=== PATIENT | male | born 1935 | race Caucasian/White ===

== ENCOUNTER 2022-12-14 22:53 | Observation (INO) ==
[2022-12-14] MEDS ORDERED: KETOROLAC TROMETHAMINE 15 MG/ML VIAL IV ONE (23:20)
--- NOTE | 2022-12-14 23:23 | Emergency Department Note ---
History of Present Illness General Chief complaint: Flank Pain Stated complaint: VOMITTING,BACK PAIN, R FLANK PAIN,DIZZY Time Seen by Provider: 12/14/22 23:00 History of Present Illness Maximum Pain Intensity: 5 87-year-old male presents emergency department 2-hour history of right flank pain that started suddenly with associated vomiting. Patient's had a prior history of kidney stones. Patient denies any fever states the pain was moderate is now there were no other mitigating or alleviating factors. Patient denies hematuria patient denies recent trauma. Patient denies specific abdominal pain Home Medications Medication Instructions Recorded Confirmed Type amlodipine 5 mg tablet 5 mg PO DAILY 02/18/19 12/14/22 History hydralazine 50 mg tablet 50 mg PO BID 02/18/19 12/14/22 History isosorbide mononitrate 60 mg 60 mg PO DAILY 02/18/19 12/14/22 History tablet,extended release 24 hr metformin 500 mg tablet,extended 500 mg PO BID 02/18/19 12/14/22 History release 24 hr metoprolol succinate 25 mg 12.5 mg PO HS 02/18/19 12/14/22 History tablet,extended release 24 hr multivitamin 1 tab PO DAILY 02/18/19 12/14/22 History simvastatin 20 mg tablet 20 mg PO HS 02/18/19 12/14/22 History aspirin 81 mg tablet,delayed 81 mg PO DAILY 12/14/22 12/14/22 History release coQ10 (ubiquinol) 200 mg capsule 200 mg PO DAILY 12/14/22 12/14/22 History omeprazole 20 mg capsule,delayed 20 mg PO DAILY 12/14/22 12/14/22 History release vit C 250 mg-vit E 90 mg-zinc 40 1 tab PO BID 12/14/22 12/14/22 History mg-copper 1 [id number] capsule (PreserVision AREDS-2) Allergies Allergy/AdvReac Type Severity Reaction Status Date / Time losartan Allergy Severe ANGIOEDEMA Verified 12/14/22 23:52 peanut Allergy Severe THROAT Verified 12/14/22 23:52 SWELLED--ATE A LARGE AMT Penicillins Allergy Intermediate Hives Verified 12/14/22 23:52 Past Med/Surg History Surgical History S/P triple vessel bypass Family History Other Family history non-contributory Social History Smoking Status: Never smoker Preferred Language: Portuguese Feels Safe at Home: Yes Immunizations: Past medical history is reviewed see the chart for further patient had a prior history of kidney stones and is a diabetic Review of Systems A total of 10 systems reviewed and were otherwise negative Musculoskeletal: + back pain Physical Exam Vital Signs Vital Signs - 24 hr 12/14/22 22:56 12/14/22 23:33 12/14/22 23:35 Temperature 36.7 C Temperature Source Temporal Artery Scan Pulse Rate 69 71 Pulse Rate [Apical] 72 Pulse Rate from SpO2 Sensor 68 Respiratory Rate 18 18 16 Respiratory Effort / Characteristics Non-Labored Respiratory Depth Normal Blood Pressure 180/76 H Blood Pressure [Left Arm] 172/69 H Blood Pressure Mean 110 Blood Pressure Mean [Left Arm] 103 Pulse Oximetry 95 95 97 Oxygen Delivery Method Room Air Room Air Sepsis Recent Fever Within 48 Hours No Sepsis New/Unexplained Change in Mental Status No Sepsis Action Taken by Nursing No Action Required 12/15/22 00:00 12/15/22 00:30 12/15/22 01:00 Temperature Temperature Source Pulse Rate 71 81 67 Pulse Rate [Apical] Pulse Rate from SpO2 Sensor Respiratory Rate 18 21 20 Respiratory Effort / Characteristics Respiratory Depth Blood Pressure Blood Pressure [Left Arm] Blood Pressure Mean Blood Pressure Mean [Left Arm] Pulse Oximetry Oxygen Delivery Method Sepsis Recent Fever Within 48 Hours Sepsis New/Unexplained Change in Mental Status Sepsis Action Taken by Nursing 12/15/22 01:30 Temperature Temperature Source Pulse Rate 69 Pulse Rate [Apical] Pulse Rate from SpO2 Sensor Respiratory Rate 18 Respiratory Effort / Characteristics Respiratory Depth Blood Pressure Blood Pressure [Left Arm] Blood Pressure Mean Blood Pressure Mean [Left Arm] Pulse Oximetry Oxygen Delivery Method Sepsis Recent Fever Within 48 Hours Sepsis New/Unexplained Change in Mental Status Sepsis Action Taken by Nursing GENERAL: Patient is awake alert in no acute distress patient is resting comfortably and showing no signs of anxiety EYES: The conjunctivae are clear. The pupils are round and reactive. EARS, NOSE, MOUTH AND THROAT: The nose is without any evidence of any deformity. Mucous membranes are moist. Tongue is midline. NECK: The neck is nontender and supple. RESPIRATORY: Normal respiratory effort is noted there is no evidence of wheezing rhonchi or rales CARDIOVASCULAR: Regular rate and rhythm noted there no murmurs rubs or gallops normal S1 normal S2. GASTROINTESTINAL: The abdomen is soft. Abdomen is nontender. PELVIS: The Pelvis is stable. No tenderness to palpation is noted. BACK: No midline tenderness or or step-off noted range of motion in flexion extension as well as rotation no signs of muscle spasm noted; right flank there is no costovertebral angle tenderness present MUSCULOSKELETAL/EXTREMITIES: There is no evidence of gross deformity full range of motion is noted in the hips and shoulders. SKIN: There is no obvious evidence of any rash. There are no petechiae, pallor or cyanosis noted. NEUROLOGIC: Patient is awake alert and oriented x3 strength is symmetric Psych normal affect Course Reevaluation(s) Reevaluation #1: On repeat examination the patient feels improved. Patient was started on Toradol and Zofran and Rocephin. The case was discussed with the patient and patient's family at bedside. Concern is for an infected kidney stone. Case was also discussed with the [facility]ist Time: :05 Consultations Consultation #1: Spoke with [facility] for admission for infected kidney stone Time: 01:05 Administered Medications Discontinued Medications Ketorolac Tromethamine (Ketorolac Tromethamine 15 Mg/Ml Vial) 10 mg IV NOW ONE Stop: 12/14/22 23:21 Last Admin: 12/14/22 23:40 Dose: 10 mg Documented By: BERNARD Ondansetron HCl (Ondansetron Inj 2 Mg/Ml 2 Ml Vial) 4 mg IV NOW STA Stop: 12/14/22 23:33 Last Admin: 12/14/22 23:41 Dose: 4 mg Documented By: BERNARD Tamsulosin HCl (Tamsulosin Hcl 0.4 Mg Cap) 0.4 mg PO NOW ONE Stop: 12/15/22 01:09 Last Admin: 12/15/22 01:28 Dose: 0.4 mg Documented By: BERNARD Medical Decision Making Medical Records Attestation: I reviewed the patient's medical records. Home Medications Current Medication List: was personally reviewed by me Laboratory Data Attestation: I reviewed the patient's lab results. 12/14/22 23:10 12/14/22 23:10 Lab Results 12/14/22 12/14/2212/14/23 Range/Units 23:10 23:10 23:10 WBC 10.72 (4.8-10.8) K/ul RBC 5.05 (4.70-6.10) M/uL Hgb 16.1 (14.0-18.0) g/dl Hct 46.3 (42.0-52.0) % MCV 91.7 (80.0-100.0) fL MCH 31.9 (25.0-34.0) pg MCHC 34.8 (32.0-36.0) g/dL RDW Std Deviation 43.5 (36.4-46.3) fL RDW Coeff of [place] 13.0 (11.5-14.5) % Plt Count 220 (130-400) K/uL MPV 9.8 (9.4-12.4) fL Immature Gran % (Auto) 0.4 % Neut % (Auto) 80.4 % Lymph % (Auto) 13.9 % [place] % (Auto) 4.6 % Eos % (Auto) 0.4 % Baso % (Auto) 0.3 % Neut # (Auto) 8.63 H (1.40-6.50) K/uL Lymph # (Auto) 1.49 (1.2-3.4) K/uL [place] # (Auto) 0.49 (0.11-0.59) K/uL Eos # (Auto) 0.04 (0-0.50) K/uL Baso # (Auto) 0.03 (0-0.2) K/uL Immature Gran # (Auto) 0.04 (0.01-0.20) K/uL PT 10.6 (9.0-12.0) Seconds INR 1.0 (0.9-1.1) Sodium 140 (136-145) mmol/L Potassium 3.9 (3.5-5.1) mmol/L Chloride 105 (98-107) mmol/L Carbon Dioxide 24 (21-32) mmol/L Anion Gap 11 (3-11) BUN 23 (6-23) mg/dl Creatinine 1.21 (0.6-1.4) mg/dl Est Cr Clr Drug Dosing Not Reportable Est GFR ( Amer) 61.1 ml/min Est GFR (Non-Af Amer) 52.8 ml/min BUN/Creatinine Ratio 19.0 (10-20) Glucose 162 H (70-99(Fasting)) mg/dl Calcium 9.1 (8.5-10.1) mg/dl Total Bilirubin 0.9 (0.2-1.0) mg/dl AST 24 (13-39) U/L ALT 21 (7-52) U/L Alkaline Phosphatase 89 (34-104) U/L Troponin I High Sens 8.5 (0-20) pg/ml Total Protein 7.6 (6.0-8.3) gm/dl Albumin 4.5 (3.4-5.0) gm/dl Globulin 3.1 (2.5-4.0) gm/dl Albumin/Globulin Ratio 1.5 (0.9-2) Lipase 28 (11-82) U/L Urine Color Urine Appearance (Clear) Urine pH (4.5-7.5) Ur Specific [place] (1.000-1.030) Urine Protein (Negative) Urine Glucose (UA) (Negative) Urine Ketones (Negative) Urine Blood (Negative) Urine Nitrite (Negative) Urine Bilirubin (Negative) Urine Urobilinogen (Negative) Ur Leukocyte Esterase (Negative) Urine WBC (Auto) (0-5) /hpf Urine RBC (Auto) (0-4) /hpf U Hyaline Cast (Auto) (0-5) /lpf U Epithel Cells (Auto) (0-5) /lpf Urine Bacteria (Auto) (Negative) SARS-CoV-2, RNA, NAAT (NEGATIVE) 12/14/22 12/14/22 Range/Units 23:30 23:59 WBC (4.8-10.8) K/ul RBC (4.70-6.10) M/uL Hgb (14.0-18.0) g/dl Hct (42.0-52.0) % MCV (80.0-100.0) fL MCH (25.0-34.0) pg MCHC (32.0-36.0) g/dL RDW Std Deviation (36.4-46.3) fL RDW Coeff of [place] (11.5-14.5) % Plt Count (130-400) K/uL MPV (9.4-12.4) fL Immature Gran % (Auto) % Neut % (Auto) % Lymph % (Auto) % [place] % (Auto) % Eos % (Auto) % Baso % (Auto) % Neut # (Auto) (1.40-6.50) K/uL Lymph # (Auto) (1.2-3.4) K/uL [place] # (Auto) (0.11-0.59) K/uL Eos # (Auto) (0-0.50) K/uL Baso # (Auto) (0-0.2) K/uL Immature Gran # (Auto) (0.01-0.20) K/uL PT (9.0-12.0) Seconds INR (0.9-1.1) Sodium (136-145) mmol/L Potassium (3.5-5.1) mmol/L Chloride (98-107) mmol/L Carbon Dioxide (21-32) mmol/L Anion Gap (3-11) BUN (6-23) mg/dl Creatinine (0.6-1.4) mg/dl Est Cr Clr Drug Dosing Est GFR ( Amer) ml/min Est GFR (Non-Af Amer) ml/min BUN/Creatinine Ratio (10-20) Glucose (70-99(Fasting)) mg/dl Calcium (8.5-10.1) mg/dl Total Bilirubin (0.2-1.0) mg/dl AST (13-39) U/L ALT (7-52) U/L Alkaline Phosphatase (34-104) U/L Troponin I High Sens (0-20) pg/ml Total Protein (6.0-8.3) gm/dl Albumin (3.4-5.0) gm/dl Globulin (2.5-4.0) gm/dl Albumin/Globulin Ratio (0.9-2) Lipase (11-82) U/L Urine Color Yellow Urine Appearance Clear (Clear) Urine pH 6.5 (4.5-7.5) Ur Specific [place] 1.016 (1.000-1.030) Urine Protein 1+ H (Negative) Urine Glucose (UA) Negative (Negative) Urine Ketones 1+ H (Negative) Urine Blood 1+ H (Negative) Urine Nitrite Negative (Negative) Urine Bilirubin Negative (Negative) Urine Urobilinogen Negative (Negative) Ur Leukocyte Esterase Trace H (Negative) Urine WBC (Auto) 5-10 H (0-5) /hpf Urine RBC (Auto) 10-30 H (0-4) /hpf U Hyaline Cast (Auto) 0 (0-5) /lpf U Epithel Cells (Auto) 5-10 H (0-5) /lpf Urine Bacteria (Auto) Negative (Negative) SARS-CoV-2, RNA, NAAT NEGATIVE (NEGATIVE) Imaging Data Attestation: I personally reviewed and interpreted this imaging study as follows: My Impression: CT reviewed by me and appreciated stat rad read Radiologist's Impression: History: PAIN AT RIGHT FLANK, HX OF KIDNEY STONES Slices: [phone] Priors: Tech: Srinivas Hays @ [phone] Exams: CT ABDOMEN & PELVIS Without Contrast Contrast: Accession Numbers: [id number] Referring Physician: REFERRED SELF Preliminary Findings Only See Final Report For Complete Findings CT ABDOMEN & PELVIS Without Contrast: 0.3 cm right distal ureteral calculus just proximal to the ureterovesical junction causing moderate hydronephrosis and hydroureter with surrounding inflammation. 4 cm infrarenal abdominal aortic aneurysm without evidence of rupture. Previously measured 3.2 cm on study of 05/07/2012. Radiologist: Ted Chahal M.D. ECG Data Attestation: I personally reviewed and interpreted this ECG as follows: Additional Comments: EKG interpreted by me normal sinus rhythm rate of 63 first-degree AV block right bundle branch block no obvious ST segment elevation or depression MDM Narrative Medical decision making differential diagnosis includes ureterolithiasis, pyelonephritis, urinary tract infection, bowel obstruction, musculoskeletal back pain Plan is to check labs, urinalysis, CT abdomen pelvis External medical records were reviewed by me Nursing notes were reviewed by me and appreciated Independent history provided to me by the patient's at bedside Impression & Plan Ureterolithiasis, Acute UTI (urinary tract infection) Discharge Plan Visit Data Chief Complaint: Flank Pain Stated Complaint: VOMITTING,BACK PAIN, R FLANK PAIN,DIZZY ED Provider: Omar Carney Discharge Problem: Ureterolithiasis, Acute UTI (urinary tract infection) Patient Disposition: Admitted As Inpatient Forms Stand Alone Forms: My [facility] Prescriptions Prescriptions: No Action multivitamin Tablet 1 tab PO DAILY amlodipine 5 mg tablet 5 mg PO DAILY isosorbide mononitrate 60 mg tablet extended release 24 hr 60 mg PO DAILY simvastatin 20 mg tablet 20 mg PO HS hydralazine 50 mg tablet 50 mg PO BID metoprolol succinate 25 mg tablet extended release 24 hr 12.5 mg PO HS metformin 500 mg tablet extended release 24 hr 500 mg PO BID aspirin 81 mg Tablet,Delayed Release (Dr/Ec) 81 mg PO DAILY omeprazole 20 mg Capsule,Delayed Release(Dr/Ec) 20 mg PO DAILY coQ10 (ubiquinol) 200 mg Capsule 200 mg PO DAILY PreserVision AREDS-2 250-90-40-1 mg Capsule 1 tab PO BID Referrals Referrals: PCP,NO [Physician] -
[2022-12-14 23:32] LABS: Basophils # (auto) 0.03 K/uL (0-0.2); Basophils % (auto) 0.3 %; Eosinophils # (auto) 0.04 K/uL (0-0.50); Eosinophils % (auto) 0.4 %; Hematocrit (blood only) 46.3 % (42.0-52.0); Hemoglobin 16.1 g/dl (14.0-18.0); Immature Granulocytes # (auto) 0.04 K/uL (0.01-0.20); Immature Granulocytes % (auto) 0.4 %; Lymphocytes # (auto) 1.49 K/uL (1.2-3.4); Lymphocytes % (auto) 13.9 %; Mean Corpuscular Hemoglobin 31.9 pg (25.0-34.0); Mean Corpuscular Hgb Conc 34.8 g/dL (32.0-36.0); Mean Corpuscular Volume 91.7 fL (80.0-100.0); Mean Platelet Volume 9.8 fL (9.4-12.4); Monocytes # (auto) 0.49 K/uL (0.11-0.59); Monocytes % (auto) 4.6 %; Neutrophils # (auto) 8.63 K/uL (1.40-6.50); Neutrophils % (auto) 80.4 %; Platelet Count 220 K/uL (130-400); RDW Standard Deviation 43.5 fL (36.4-46.3); Red Blood Count 5.05 M/uL (4.70-6.10); White Blood Count 10.72 K/ul (4.8-10.8)
[2022-12-14] MEDS ORDERED: ONDANSETRON INJ 2 MG/ML 2 ML VIAL IV STA (23:32)
[2022-12-14 23:53] LABS: Alanine Aminotransferase 21 U/L (7-52); Albumin Globulin Ratio 1.5 (0.9-2); Albumin Level 4.5 gm/dl (3.4-5.0); Alkaline Phosphatase 89 U/L (34-104); Anion Gap 11 (3-11); Aspartate Aminotransferase 24 U/L (13-39); Bilirubin,Total 0.9 mg/dl (0.2-1.0); Blood Urea Nitrogen 23 mg/dl (6-23); Calcium 9.1 mg/dl (8.5-10.1); Carbon Dioxide 24 mmol/L (21-32); Chloride 105 mmol/L (98-107); Est GFR (African American) 61.1 ml/min; Est GFR (Non-African American) 52.8 ml/min; Globulin 3.1 gm/dl (2.5-4.0); Glucose 162 mg/dl (70-99(Fasting)); Lipase 28 U/L (11-82); Potassium 3.9 mmol/L (3.5-5.1); Sodium 140 mmol/L (136-145); Total Protein 7.6 gm/dl (6.0-8.3)
[2022-12-14 23:59] LABS: Troponin I High Sensitivity 8.5 pg/ml (0-20)
[2022-12-15] LABS: Appearance Urine Clear (Clear); Bacteria Urine Automated Negative (Negative); Bilirubin Urine Negative (Negative); Blood Urine 1+ (Negative); Cast Urine Automated 0 /lpf (0-5); Color Urine Yellow; Glucose Urine UA Negative (Negative); Ketones Urine 1+ (Negative); Leukocyte Esterase Urine Trace (Negative); Nitrite Urine Negative (Negative); Protein Urine 1+ (Negative); Specific Gravity Urine 1.016 (1.000-1.030); Urobilinogen Urine Negative (Negative); pH Urine 6.5 (4.5-7.5)
[2022-12-15 00:02] LABS: Prothrombin Time 10.6 Seconds (9.0-12.0)
[2022-12-15] MEDS ORDERED: cefTRIAXone SODIUM 2,000 MG/70 ML BAG IV STA (00:54)
[2022-12-15] MEDS ORDERED: amLODIPine BESYLATE 5 MG TAB PO ONE (01:05)
[2022-12-15] MEDS ORDERED: LACTATED RINGER'S 1,000 ML IV ONE (01:06)
[2022-12-15] MEDS ORDERED: TAMSULOSIN HCL 0.4 MG CAP PO ONE (01:08)
--- NOTE | 2022-12-15 01:08 | History & Physical Report ---
Date of Service December 15, 2022 Assessment & Plan (1) Obstructive uropathy: Plan: Secondary to recurrent urolithiasis No sepsis for now Hypertensive urgency secondary to above BP improved after amlodipine administration at the ER hx CAD status post CABG, clinically well as per outpatient [facility] visit June 2022 AAA, stable measurement at 4 cm, patient follows with [facility] vascular surgery hyperlipidemia, on statin Rx DM2 on oral medications, well-controlled as of recent hemoglobin A1c of 6.3 last September 2022 pulmonary nodule, patient refused additional work-up a few years back after negative bronchoscopic biopsies F IVF, analgesia Flomax trial Strain urine Urology consult Re: Obstructive uropathy N.p.o. until patient seen by urology in anticipation of procedural intervention Basal bolus insulin adjusted for n.p.o. status, ISS BG goal 1 10-1 40 DVT prophylaxis per Lovenox subcu Full code Patient requesting updates from providers. Ms. Therese Orellana, contact #[phone]. Text document was generated using [employer] voice recognition software. It may contain grammatical or spelling errors. Kindly contact undersigned for clarification of any documentation item in question. History of Present Illness Chief Complaint: Right flank pain Primary Care Provider: Laron Bustillos MD History obtained from patient and records. Medical history significant for CAD status post CABG, AAA, hypertension, hyperlipidemia, DM2 on oral medications, pulmonary nodule, urolithiasis. 1 day history of sudden onset achy right flank pain symptoms associate with vomiting. Pain reminiscent of left-sided kidney stone attack in 2011 which led to ER visit. Spontaneous passage of stone in the past. No fever, no chills. No headache, no chest pain, no shortness of breath. Patient brought by family to the ER for evaluation. SBP 180s upon arrival at the ER. 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 Allergies Allergy/AdvReac Type Severity Reaction Status Date / Time losartan Allergy Severe ANGIOEDEMA Verified 12/14/22 23:52 peanut Allergy Severe THROAT Verified 12/14/22 23:52 SWELLED--ATE A LARGE AMT Penicillins Allergy Intermediate Hives Verified 12/14/22 23:52 Home Medications Medication Instructions Recorded Confirmed Type amlodipine 5 mg tablet 5 mg PO DAILY 02/18/19 12/14/22 History hydralazine 50 mg tablet 50 mg PO BID 02/18/19 12/14/22 History isosorbide mononitrate 60 mg 60 mg PO DAILY 02/18/19 12/14/22 History tablet,extended release 24 hr metformin 500 mg tablet,extended 500 mg PO BID 02/18/19 12/14/22 History release 24 hr metoprolol succinate 25 mg 12.5 mg PO HS 02/18/19 12/14/22 History tablet,extended release 24 hr multivitamin 1 tab PO DAILY 02/18/19 12/14/22 History simvastatin 20 mg tablet 20 mg PO HS 02/18/19 12/14/22 History aspirin 81 mg tablet,delayed 81 mg PO DAILY 12/14/22 12/14/22 History release coQ10 (ubiquinol) 200 mg capsule 200 mg PO DAILY 12/14/22 12/14/22 History omeprazole 20 mg capsule,delayed 20 mg PO DAILY 12/14/22 12/14/22 History release vit C 250 mg-vit E 90 mg-zinc 40 1 tab PO BID 12/14/22 12/14/22 History mg-copper 1 [id number] capsule (PreserVision AREDS-2) Past Med/Surg History Surgical History S/P triple vessel bypass Family History Other Family history non-contributory Social History Smoking Status: Never smoker Hx Alcohol Use: No Hx Substance Use: No Preferred Language: Indonesian Communication Ability: Effective [place] Hand Required: No Beliefs That Will Affect Care: None Current Living Situation: Spouse Other Information That Helps Us Care for You: No Feels Safe at Home: Yes Safety Concerns: Feels Safe At This Time Assistive Devices: Glasses Review of Systems Review of Systems: As per HPI, all other systems reviewed and negative Physical Exam Physical Exam: GENERAL: Comfortable, pleasant, looks younger than stated age, no respiratory distress SKIN: Normal color, warm HEENT: Partial alopecia, [place] palpebral conjunctivae, no ptosis, dry buccal mucosa NECK : Supple, no tenderness CHEST : CTA, no tenderness HEART : RRR, no obvious murmurs ABDOMEN: Some distention, nontender EXTREMITIES : No LE swelling, no LE tenderness, no other conspicuous deformities noted NEUROLOGIC : Coherent, no facial asymmetry, no other gross focality Results & Data Results & Data ([facility]) Vital Signs (Past 12 Hours) Vital Signs Temp Pulse Pulse Resp BP BP Pulse Ox 12/14/22 23:33 72 18 172/69 H 95 12/14/22 22:56 36.7 C 69 18 180/76 H 95 O2 Del Method 12/14/22 23:33 Room Air 12/14/22 22:56 Room Air Laboratory Results Laboratory Results WBC 10.72 K/ul (4.8-10.8) 12/14/22 23:10 RBC 5.05 M/uL (4.70-6.10) 12/14/22 23:10 Hgb 16.1 g/dl (14.0-18.0) 12/14/22 23:10 Hct 46.3 % (42.0-52.0) 12/14/22 23:10 MCV 91.7 fL (80.0-100.0) 12/14/22 23:10 MCH 31.9 pg (25.0-34.0) 12/14/22 23:10 MCHC 34.8 g/dL (32.0-36.0) 12/14/22 23:10 RDW Std Deviation 43.5 fL (36.4-46.3) 12/14/22 23:10 RDW Coeff of [place] 13.0 % (11.5-14.5) 12/14/22 23:10 Plt Count 220 K/uL (130-400) 12/14/22 23:10 MPV 9.8 fL (9.4-12.4) 12/14/22 23:10 Immature Gran % (Auto) 0.4 % 12/14/22 23:10 Neut % (Auto) 80.4 % 12/14/22 23:10 Lymph % (Auto) 13.9 % 12/14/22 23:10 [place] % (Auto) 4.6 % 12/14/22 23:10 Eos % (Auto) 0.4 % 12/14/22 23:10 Baso % (Auto) 0.3 % 12/14/22 23:10 Neut # (Auto) 8.63 K/uL (1.40-6.50) H 12/14/22 23:10 Lymph # (Auto) 1.49 K/uL (1.2-3.4) 12/14/22 23:10 [place] # (Auto) 0.49 K/uL (0.11-0.59) 12/14/22 23:10 Eos # (Auto) 0.04 K/uL (0-0.50) 12/14/22 23:10 Baso # (Auto) 0.03 K/uL (0-0.2) 12/14/22 23:10 Immature Gran # (Auto) 0.04 K/uL (0.01-0.20) 12/14/22 23:10 PT 10.6 Seconds (9.0-12.0) 12/14/22 23:10 INR 1.0 (0.9-1.1) 12/14/22 23:10 Sodium 140 mmol/L (136-145) 12/14/22 23:10 Potassium 3.9 mmol/L (3.5-5.1) 12/14/22 23:10 Chloride 105 mmol/L (98-107) 12/14/22 23:10 Carbon Dioxide 24 mmol/L (21-32) 12/14/22 23:10 Anion Gap 11 (3-11) 12/14/22 23:10 BUN 23 mg/dl (6-23) 12/14/22 23:10 Creatinine 1.21 mg/dl (0.6-1.4) 12/14/22 23:10 Est Cr Clr Drug Dosing Not Reportable 12/14/22 23:10 Est GFR ( Amer) 61.1 ml/min 12/14/22 23:10 Est GFR (Non-Af Amer) 52.8 ml/min 12/14/22 23:10 BUN/Creatinine Ratio 19.0 (10-20) 12/14/22 23:10 Glucose 162 mg/dl (70-99(Fasting)) H 12/14/22 23:10 Calcium 9.1 mg/dl (8.5-10.1) 12/14/22 23:10 Total Bilirubin 0.9 mg/dl (0.2-1.0) 12/14/22 23:10 AST 24 U/L (13-39) 12/14/22 23:10 ALT 21 U/L (7-52) 12/14/22 23:10 Alkaline Phosphatase 89 U/L (34-104) 12/14/22 23:10 Troponin I High Sens 8.5 pg/ml (0-20) 12/14/22 23:10 Total Protein 7.6 gm/dl (6.0-8.3) 12/14/22 23:10 Albumin 4.5 gm/dl (3.4-5.0) 12/14/22 23:10 Globulin 3.1 gm/dl (2.5-4.0) 12/14/22 23:10 Albumin/Globulin Ratio 1.5 (0.9-2) 12/14/22 23:10 Lipase 28 U/L (11-82) 12/14/22 23:10 Urine Color Yellow 12/14/22 23:30 Urine Appearance Clear (Clear) 12/14/22 23:30 Urine pH 6.5 (4.5-7.5) 12/14/22 23:30 Ur Specific [place] 1.016 (1.000-1.030) 12/14/22 23:30 Urine Protein 1+ (Negative) H 12/14/22 23:30 Urine Glucose (UA) Negative (Negative) 12/14/22 23:30 Urine Ketones 1+ (Negative) H 12/14/22 23:30 Urine Blood 1+ (Negative) H 12/14/22 23:30 Urine Nitrite Negative (Negative) 12/14/22 23:30 Urine Bilirubin Negative (Negative) 12/14/22 23:30 Urine Urobilinogen Negative (Negative) 12/14/22 23:30 Ur Leukocyte Esterase Trace (Negative) H 12/14/22 23:30 Urine WBC (Auto) 5-10 /hpf (0-5) H 12/14/22 23:30 Urine RBC (Auto) 10-30 /hpf (0-4) H 12/14/22 23:30 U Hyaline Cast (Auto) 0 /lpf (0-5) 12/14/22 23:30 U Epithel Cells (Auto) 5-10 /lpf (0-5) H 01/30/23 23:30 Urine Bacteria (Auto) Negative (Negative) 12/14/22 23:30 SARS-CoV-2, RNA, NAAT NEGATIVE (NEGATIVE) 12/14/22 23:[address] abdomen pelvis initial read: 0.3 cm right distal ureteral calculus just proximal to the ureterovesical junction causing moderate hydronephrosis and hydroureter with surrounding inflammation. 4 cm infrarenal abdominal aortic aneurysm without evidence of rupture. Previously measured 3.2 cm on study of 05/07/2012. EKG as per my interpretation :Rate 65, NSR, normal axis, RBBB, 1 AVB, T wave flattening inferior leads
[2022-12-15] MEDS ORDERED: MoRPHine SULFATE 2 MG/ML CARP IV PRN (03:11)
[2022-12-15] MEDS ORDERED: PROMETHAZINE HCL 6.25 MG in SODIUM CHLORIDE 0.9% 50 ML IV PRN (03:11)
[2022-12-15] MEDS ORDERED: oxyCODONE HCL IR 5 MG TAB (IMMEDIATE RELEASE) PO PRN (03:11)
[2022-12-15] MEDS ORDERED: hydrALAZINE HCL 20 MG/ML VIAL IV ONE (03:11)
[2022-12-15] MEDS ORDERED: DEXTROSE 50% 50 ML SYRINGE IV PRN (04:18)
[2022-12-15] MEDS ORDERED: GLUCAGON FOR INJ 1 MG VIAL SQ PRN (04:18)
[2022-12-15] MEDS ORDERED: CARBOHYDRATES FOR HYPOGLYCEMIA PO PRN (04:18)
[2022-12-15] MEDS ORDERED: GLUCOSE 40% GEL 15 GM TUBE PO PRN (04:18)
[2022-12-15] MEDS ORDERED: GLUCOSE 10 TAB/TUBE PO PRN (04:18)
[2022-12-15] MEDS ORDERED: ACETAMINOPHEN 325 MG TAB PO PRN (04:18)
[2022-12-15] MEDS ORDERED: Nursing to Pharmacy Communication SCH ×2 (04:30→07:15)
[2022-12-15] MEDS: INSULIN ASPART PER UNIT SC SCH ×3 (04:44→12:31)
--- NOTE | 2022-12-15 07:23 | CT Scan Report ---
CT OF THE ABDOMEN AND PELVIS WITHOUT CONTRAST CLINICAL HISTORY: Right flank pain. COMPARISON STUDY: No previous studies for comparison. TECHNIQUE: Axial images of the abdomen and pelvis were obtained without IV contrast. Images were revi ewed in the axial, sagittal, and coronal planes. Automated exposure control was utilized for the mike dy. A dose lowering technique was utilized adhering to the principles of ALARA. FINDINGS: A masslike density projecting over the right hilum on metallurgical technician tomogram corresponds to a right lower lobe mass which was visualized on chest CT of February 18, 2019. This remains indeterminate. A 3 m m distal right ureteral calculus results in moderate right hydronephrosis. There is right perinephric stranding and fluid. There are no additional urinary calculi. There is no left hydronephrosis. Evalu ation of the remainder of the abdomen and pelvis is suboptimal on this unenhanced exam. Liver, spleen , adrenal glands and pancreas are unremarkable. There is no biliary or pancreatic ductal dilatation. A 4.1 cm infrarenal abdominal aortic aneurysm is noted. This measured 3.[address] of May 07, 2012. There is no evidence for rupture. There is mild dilatation of the bilateral common iliac arteries. Pr ostate is enlarged. There is no evidence for a bowel obstruction. Colonic diverticulosis without evid ence for acute diverticulitis. There is no lymphadenopathy. Prominent heather hepatis lymph nodes remai n unchanged. There are no acute fractures. Fat-containing left inguinal hernia. IMPRESSION: 1. 3 mm distal right ureteral calculus which results in moderate right hydronephrosis. 2. Right lower lobe mass on metallurgical technician tomogram, depicted on chest CT of February 18, 2019. This remains indet erminate. Nonemergent chest CT is recommended. 3. 4.1 cm infrarenal abdominal aortic aneurysm. 4. Enlarged prostate. ACT 112: Positive. There are findings on this exam that require communication between the performing entity and the patient following Patient Test Result Information Act ([place] Act 112) guidelines. Electronically signed by: Isaac Gomez M.D. 12/15/2022 7:22 AM
--- NOTE | 2022-12-15 07:58 | Urology Consultation ---
Date of Consultation December 15, 2022 Assessment & Plan (1) Obstructive uropathy: (2) Ureterolithiasis: 87-year-old male admitted for hypertensive urgency and right flank pain secondary to a 3 mm distal right ureteral calculus with right hydronephrosis. Patient is afebrile and nontoxic. Lab work on arrival showed creatinine and WBC within normal limits. Urinalysis showed trace leukocytes, 10-30 RBCs, 5-10 WBCs, negative for bacteria. No urine culture pending on chart. He was treated with 2 g of Rocephin on arrival. Blood cultures are pending. He is subjectively feeling well. We discussed options for stone management including trial of passage vs surgical intervention with ESWL or ureteroscopy, laser lithotripsy, and stent placement. Procedures, success rates, risks, benefits and clinical courses reviewed. We discussed that his stone is a passable size. Plan: - Patient prefers trial of passage. - No acute urologic intervention planned today. - Continue supportive care and management per hospital medicine. - Reasonable to dc home for trial of passage when medically stable. - Strain all urine. - Recommend continue Tamsulosin and prn analgesia. - We will arrange outpatient follow-up with our service. History of Present Illness Attending Physician: Igor Barcenas MD History of Present Illness This is an 87-year-old male with past medical history of CAD status post CABG, AAA, hypertension, hyperlipidemia, DM2 on oral medications, pulmonary nodule, urolithiasis who presented to the emergency department on 12/14/2022 with right flank pain and vomiting. He was afebrile on arrival, but hypertensive. Lab work independently reviewed. CBC showed WBC 10.72, hemoglobin 16.1. Chemistry showed a creatinine of 1.21, normal electrolytes. Urinalysis notable for 1+ protein, 1+ ketones, 1+ blood, trace leukocyte esterase, 5-10 WBC, 10-30 RBC, negative for bacteria. Blood cultures obtained and pending. CT abdomen and pelvis independently reviewed and showed a 3 mm distal right ureteral stone with moderate right hydronephrosis, right perinephric stranding noted. He was treated with 2 g of Rocephin, ketorolac, and Zofran in the emergency department. He was admitted to the hospital medicine service. Urology is consulted for obstructive uropathy. Patient seen and examined at bedside this morning. He is awake, resting in bed in no acute distress. He reports no pain at present. He denies stone passage. He is voiding spontaneously without difficulty. No dysuria or hematuria. No nausea or vomiting. No fever or chills. He reports history of spontaneous stone passage in the past. No prior history of stone surgery. Allergies Allergy/AdvReac Type Severity Reaction Status Date / Time losartan Allergy Severe ANGIOEDEMA Verified 12/14/22 23:52 peanut Allergy Severe THROAT Verified 12/14/22 23:52 SWELLED--ATE A LARGE AMT Penicillins Allergy Intermediate Hives Verified 12/14/22 23:52 Home Medications Medication Instructions Recorded Confirmed Type amlodipine 5 mg tablet 5 mg PO DAILY 02/18/19 12/14/22 History hydralazine 50 mg tablet 50 mg PO BID 02/18/19 12/14/22 History isosorbide mononitrate 60 mg 60 mg PO DAILY 02/18/19 12/14/22 History tablet,extended release 24 hr metformin 500 mg tablet,extended 500 mg PO BID 02/18/19 12/14/22 History release 24 hr metoprolol succinate 25 mg 12.5 mg PO HS 02/18/19 12/14/22 History tablet,extended release 24 hr multivitamin 1 tab PO DAILY 02/18/19 12/14/22 History simvastatin 20 mg tablet 20 mg PO HS 02/18/19 12/14/22 History aspirin 81 mg tablet,delayed 81 mg PO DAILY 12/14/22 12/14/22 History release coQ10 (ubiquinol) 200 mg capsule 200 mg PO DAILY 12/14/22 12/14/22 History omeprazole 20 mg capsule,delayed 20 mg PO DAILY 12/14/22 12/14/22 History release vit C 250 mg-vit E 90 mg-zinc 40 1 tab PO BID 12/14/22 12/14/22 History mg-copper 1 [id number] capsule (PreserVision AREDS-2) Patient History Surgical History S/P triple vessel bypass Family History Other Family history non-contributory Social History Smoking Status: Never smoker Hx Alcohol Use: No Hx Substance Use: No Preferred Language: Chinese Communication Ability: Effective Director Learning And Development Required: No Beliefs That Will Affect Care: None Current Living Situation: Spouse Other Information That Helps Us Care for You: No Feels Safe at Home: Yes Safety Concerns: Feels Safe At This Time Assistive Devices: Glasses Review of Systems Review of Systems: All systems reviewed & are unremarkable except as noted in HPI & below Physical Exam Constitutional: well developed and well nourished; no acute distress and not ill appearing Neck: normal visual inspection Respiratory: normal respiratory effort and able to speak in complete sentences; no respiratory distress and no labored breathing Cardiovascular: Extremities: no pedal edema Gastrointestinal (Abdomen): Inspection/Auscultation: abdomen normal to inspection; abdomen not distended Percussion/Palpation: abdomen soft; abdomen nontender and no guarding Musculoskeletal: Head/Neck/Chest: normocephalic and head atraumatic Neurologic: moves all extremities and awake Psychiatric: Orientation: alert and oriented x 3 Genitourinary: no CVA tenderness Results & Data ([facility]) Vital Signs (Past 12 Hours) Vital Signs Temp Pulse Pulse Pulse Resp BP BP 12/15/22 04:20 36.7 C 82 18 159/76 H 12/15/22 04:17 73 18 125/64 12/15/22 03:30 73 17 125/64 12/15/22 03:00 76 22 156/79 H 12/15/22 02:29 76 20 166/72 H 12/15/22 02:00 73 21 163/79 H 12/15/22 01:34 71 23 181/73 H 12/15/22 01:30 36.9 C 12/15/22 01:30 69 18 12/15/22 01:00 67 20 12/15/22 00:30 81 21 12/15/22 00:00 71 18 12/14/22 23:35 71 16 12/14/22 23:33 72 18 172/69 H 12/14/22 22:56 36.7 C 69 18 180/76 H Pulse Ox O2 Del Method 12/15/22 04:20 96 Room Air 12/15/22 04:17 90 Room Air 12/15/22 03:30 90 12/15/22 03:00 94 12/15/22 02:29 94 12/15/22 02:00 12/15/22 01:34 91 12/15/22 01:30 12/15/22 01:30 12/15/22 01:00 12/15/22 00:30 12/15/22 00:00 12/14/22 23:35 97 12/14/22 23:33 95 Room Air 12/14/22 22:56 95 Room Air PG Care Time/CCT Total # of Minutes Spent Total Time Spent with Patient: Total time spent is greater than 50% in coordination of care (as documented) at patient's floor/unit and/or counseling patient: Coding Level of Care Code 45962 INT INP/OBS CARE MIN Diagnoses Obstructive uropathy N13.9 Ureterolithiasis N20.1
[2022-12-15 08:28] LABS: Basophils # (auto) 0.03 K/uL (0-0.2); Basophils % (auto) 0.4 %; Eosinophils # (auto) 0.03 K/uL (0-0.50); Eosinophils % (auto) 0.4 %; Hematocrit (blood only) 38.5 % (42.0-52.0); Hemoglobin 13.4 g/dl (14.0-18.0); Immature Granulocytes # (auto) 0.02 K/uL (0.01-0.20); Immature Granulocytes % (auto) 0.3 %; Lymphocytes # (auto) 1.86 K/uL (1.2-3.4); Lymphocytes % (auto) 25.1 %; Mean Corpuscular Hemoglobin 31.8 pg (25.0-34.0); Mean Corpuscular Hgb Conc 34.8 g/dL (32.0-36.0); Mean Corpuscular Volume 91.2 fL (80.0-100.0); Mean Platelet Volume 10.2 fL (9.4-12.4); Monocytes # (auto) 0.62 K/uL (0.11-0.59); Monocytes % (auto) 8.4 %; Neutrophils # (auto) 4.84 K/uL (1.40-6.50); Neutrophils % (auto) 65.4 %; Platelet Count 188 K/uL (130-400); RDW Coefficient of Variation 13.1 % (11.5-14.5); RDW Standard Deviation 43.4 fL (36.4-46.3); Red Blood Count 4.22 M/uL (4.70-6.10)
[2022-12-15] MEDS ORDERED: ISOSORBIDE MONO EXTENDED REL 60 MG TABCR PO SCH (09:00)
[2022-12-15] MEDS ORDERED: MULTIVITAMIN TAB PO SCH (09:00)
[2022-12-15] MEDS ORDERED: hydrALAZINE TAB 50 MG TAB PO SCH (09:00)
[2022-12-15] MEDS ORDERED: ASPIRIN 81 MG ECTAB PO SCH (09:00)
[2022-12-15] MEDS ORDERED: ENOXAPARIN INJ 40 MG/0.4 ML SYR SQ SCH (09:00)
[2022-12-15] MEDS ORDERED: PANTOprazole 40 MG TAB PO SCH (09:00)
[2022-12-15 09:22] LABS: Anion Gap 6 (3-11); BUN Creatinine Ratio 21.9 (10-20); Blood Urea Nitrogen 21 mg/dl (6-23); Calcium 8.6 mg/dl (8.5-10.1); Carbon Dioxide 28 mmol/L (21-32); Chloride 106 mmol/L (98-107); Creatinine Clr Calc Pharmacy 55.6 ml/min; Est GFR (African American) 80.9 ml/min; Est GFR (Non-African American) 69.8 ml/min; Glucose 101 mg/dl (70-99(Fasting)); Sodium 140 mmol/L (136-145)
--- NOTE | 2022-12-15 12:35 | Communication Note ---
Date of Service: December 15, 2022 By CMS guidelines, a determination that the admission or continued stay is not medically necessary has been made by a member of the UR committee and a ph ysician for this hospital stay, therefore a Code 44 will be completed and the Inpatient admission will be changed to outpatient.
--- NOTE | 2022-12-15 15:29 | Electrocardiogram Report ---
Test Reason : Blood Pressure : / mmHG Vent. Rate : 063 BPM Atrial Rate : 063 BPM P-R Int : 266 ms QRS Dur : 136 ms QT Int : 450 ms P-R-T Axes : 006 061 022 degrees QTc Int : 460 ms Sinus rhythm with 1st degree A-V block Right bundle branch block Possible Inferior infarct (cited on or before 26-JUN-2004) Abnormal ECG When compared with ECG of 18-FEB-2019 11:28, No significant change was found Confirmed by Rajinder Quinonez ([id number]) on 12/15/2022 3:29:20 PM Referred By: REFERRED SELF Confirmed By:Rajinder Quinonez
--- NOTE | 2022-12-15 16:49 | Discharge Summary ---
Date of Service December 15, 2022 Admission HPI Per Admitting Provider History obtained from patient and records. Medical history significant for CAD status post CABG, AAA, hypertension, hyperlipidemia, DM2 on oral medications, pulmonary nodule, urolithiasis. 1 day history of sudden onset achy right flank pain symptoms associate with vomiting. Pain reminiscent of left-sided kidney stone attack in 2011 which led to ER visit. Spontaneous passage of stone in the past. No fever, no chills. No headache, no chest pain, no shortness of breath. Patient brought by family to the ER for evaluation. SBP 180s upon arrival at the ER. 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 Admission Exam Per Admitting Provider GENERAL: Comfortable, pleasant, looks younger than stated age, no respiratory distress SKIN: Normal color, warm HEENT: Partial alopecia, [place] palpebral conjunctivae, no ptosis, dry buccal mucosa NECK : Supple, no tenderness CHEST : CTA, no tenderness HEART : RRR, no obvious murmurs ABDOMEN: Some distention, nontender EXTREMITIES : No LE swelling, no LE tenderness, no other conspicuous deformities noted NEUROLOGIC : Coherent, no facial asymmetry, no other gross focality Principal Diagnosis Renal colic Obstructive uropathy Discharge Exam Constitutional WD/WN, vitals as above no acute distress Respiratory normal respiratory effort, lungs clear to auscultation Cardiovascular Rate/Rhythm: regular rate and regular rhythm Vessels: normal peripheral pulses Extremities: no edema Gastrointestinal (Abdomen) Percussion/Palpation: abdomen soft; abdomen nontender Skin no rashes, warm and dry Neurologic no focal motor deficits Psychiatric A+Ox3, euthymic affect Genitourinary no CVA tenderness Discharge Data Allergies Allergy/AdvReac Type Severity Reaction Status Date / Time losartan Allergy Severe ANGIOEDEMA Verified 12/14/22 23:52 peanut Allergy Severe THROAT Verified 12/14/22 23:52 SWELLED--ATE A LARGE AMT Penicillins Allergy Intermediate Hives Verified 12/14/22 23:52 Consultations 12/15/22 04:18 Consult Urology Routine Ordered Studies Laboratory Results WBC 7.40 K/ul (4.8-10.8) 12/15/22 07:51 RBC 4.22 M/uL (4.70-6.10) L 12/15/22 07:51 Hgb 13.4 g/dl (14.0-18.0) L 12/15/22 07:51 Hct 38.5 % (42.0-52.0) L 12/15/22 07:51 MCV 91.2 fL (80.0-100.0) 12/15/22 07:51 MCH 31.8 pg (25.0-34.0) 12/15/22 07:51 MCHC 34.8 g/dL (32.0-36.0) 12/15/22 07:51 RDW Std Deviation 43.4 fL (36.4-46.3) 12/15/22 07:51 RDW Coeff of Oxana 13.1 % (11.5-14.5) 12/15/22 07:51 Plt Count 188 K/uL (130-400) 12/15/22 07:51 MPV 10.2 fL (9.4-12.4) 12/15/22 07:51 Immature Gran % (Auto) 0.3 % 12/15/22 07:51 Neut % (Auto) 65.4 % 12/15/22 07:51 Lymph % (Auto) 25.1 % 12/15/22 07:51 Bureau % (Auto) 8.4 % 12/15/22 07:51 Eos % (Auto) 0.4 % 12/15/22 07:51 Baso % (Auto) 0.4 % 12/15/22 07:51 Neut # (Auto) 4.84 K/uL (1.40-6.50) 12/15/22 07:51 Lymph # (Auto) 1.86 K/uL (1.2-3.4) 12/15/22 07:51 Bureau # (Auto) 0.62 K/uL (0.11-0.59) H 12/15/22 07:51 Eos # (Auto) 0.03 K/uL (0-0.50) 12/15/22 07:51 Baso # (Auto) 0.03 K/uL (0-0.2) 12/15/22 07:51 Immature Gran # (Auto) 0.02 K/uL (0.01-0.20) 12/15/22 07:51 PT 10.6 Seconds (9.0-12.0) 12/14/22 23:10 INR 1.0 (0.9-1.1) 12/14/22 23:10 Sodium 140 mmol/L (136-145) 12/15/22 07:51 Potassium 3.6 mmol/L (3.5-5.1) 12/15/22 09:32 Chloride 106 mmol/L (98-107) 12/15/22 07:51 Carbon Dioxide 28 mmol/L (21-32) 12/15/22 07:51 Anion Gap 6 (3-11) 12/15/22 07:51 BUN 21 mg/dl (6-23) 12/15/22 07:51 Creatinine 0.96 mg/dl (0.6-1.4) 12/15/22 07:51 Est Cr Clr Drug Dosing 55.6 ml/min 12/15/22 07:51 Est GFR ( Amer) 80.9 ml/min 12/15/22 07:51 Est GFR (Non-Af Amer) 69.8 ml/min 12/15/22 07:51 BUN/Creatinine Ratio 21.9 (10-20) H 12/15/22 07:51 Glucose 101 mg/dl (70-99(Fasting)) H 12/15/22 07:51 POC Glucose 152 mg/dl (70-99) H 12/15/22 11:53 Calcium 8.6 mg/dl (8.5-10.1) 12/15/22 07:51 Total Bilirubin 0.9 mg/dl (0.2-1.0) 12/14/22 23:10 AST 24 U/L (13-39) 12/14/22 23:10 ALT 21 U/L (7-52) 12/14/22 23:10 Alkaline Phosphatase 89 U/L (34-104) 12/14/22 23:10 Troponin I High Sens 8.5 pg/ml (0-20) 12/14/22 23:10 Total Protein 7.6 gm/dl (6.0-8.3) 12/14/22 23:10 Albumin 4.5 gm/dl (3.4-5.0) 12/14/22 23:10 Globulin 3.1 gm/dl (2.5-4.0) 12/14/22 23:10 Albumin/Globulin Ratio 1.5 (0.9-2) 12/14/22 23:10 Lipase 28 U/L (11-82) 12/14/22 23:10 Urine Color Yellow 12/14/22 23:30 Urine Appearance Clear (Clear) 12/14/22 23:30 Urine pH 6.5 (4.5-7.5) 12/14/22 23:30 Ur Specific [place] 1.016 (1.000-1.030) 12/14/22 23:30 Urine Protein 1+ (Negative) H 12/14/22 23:30 Urine Glucose (UA) Negative (Negative) 12/14/22 23: Urine Ketones 1+ (Negative) H 12/14/22 23: Urine Blood 1+ (Negative) H 12/14/22 23:30 Urine Nitrite Negative (Negative) 12/14/22 23:30 Urine Bilirubin Negative (Negative) 12/14/22 23:30 Urine Urobilinogen Negative (Negative) 12/14/22 23:30 Ur Leukocyte Esterase Trace (Negative) H 12/14/22 23:30 Urine WBC (Auto) 5-10 /hpf (0-5) H 12/14/22 23:30 Urine RBC (Auto) 10-30 /hpf (0-4) H 12/14/22 23:30 U Hyaline Cast (Auto) 0 /lpf (0-5) 12/14/22 23:30 U Epithel Cells (Auto) 5-10 /lpf (0-5) H 12/14/22 23:30 Urine Bacteria (Auto) Negative (Negative) 12/14/22 23:30 SARS-CoV-2, RNA, NAAT NEGATIVE (NEGATIVE) 12/14/22 23:59 Impressions Abdomen/Pelvis CT 12/14/22 23:00 CT OF THE ABDOMEN AND PELVIS WITHOUT CONTRAST CLINICAL HISTORY: Right flank pain. COMPARISON STUDY: No previous studies for comparison. TECHNIQUE: Axial images of the abdomen and pelvis were obtained without IV contrast. Images were reviewed in the axial, sagittal, and coronal planes. Automated exposure control was utilized for the study. A dose lowering technique was utilized adhering to the principles of ALARA. FINDINGS: A masslike density projecting over the right hilum on shoe cleaner tomogram corresponds to a right lower lobe mass which was visualized on chest CT of February 18, 2019. This remains indeterminate. A 3 mm distal right ureteral calculus results in moderate right hydronephrosis. There is right perinephric stranding and fluid. There are no additional urinary calculi. There is no left hydronephrosis. Evaluation of the remainder of the abdomen and pelvis is suboptimal on this unenhanced exam. Liver, spleen, adrenal glands and pancreas are unremarkable. There is no biliary or pancreatic ductal dilatation. A 4.1 cm infrarenal abdominal aortic aneurysm is noted. This measured 3.[address] of May 07, 2012. There is no evidence for rupture. There is mild dilatation of the bilateral common iliac arteries. Prostate is enlarged. There is no evidence for a bowel obstruction. Colonic diverticulosis without evidence for acute diverticulitis. There is no lymphadenopathy. Prominent heather hepatis lymph nodes remain unchanged. There are no acute fractures. Fat-containing left inguinal hernia. IMPRESSION: 1. 3 mm distal right ureteral calculus which results in moderate right hydronephrosis. 2. Right lower lobe mass on shoe cleaner tomogram, depicted on chest CT of February 18, 2019. This remains indeterminate. Nonemergent chest CT is recommended. 3. 4.1 cm infrarenal abdominal aortic aneurysm. 4. Enlarged prostate. ACT 112: Positive. There are findings on this exam that require communication between the performing entity and the patient following Patient Test Result Information Act ([place] Act 112) guidelines. Electronically signed by: Isaac Gomez M.D. 12/15/2022 7:22 AM Hospital Course (1) Obstructive uropathy: Secondary to recurrent urolithiasis Patient presented with a 1 day history of sudden onset achy, right flank pain with associated nausea and vomiting. In the ED, CT ABD/pelvis showed 3 mm distal right ureteral calculus which results in moderate right hydronephrosis. No signs of infection or sepsis. Renal function stable. Patient evaluated by urology and elected for trial of passage at home. Will start tamsulosin. Oxycodone for severe pain. Follow-up with urology as an outpatient. RLL Mass Noted on CT abd/pelvis hx RLL pulmonary nodule s/p negative biopsy in 2011 Outpatient follow-up Hypertensive urgency BP elevated likely secondary to pain BP improved with administration of home dose amlodipine History CAD s/p CABG No acute issues Continue ASA, statin, beta-diana, nitrate AAA Stable measurement 4 cm, patient [place] [facility] [place] DM type II Hgb A1c 6.3 09/2022 NovoLog per protocol while hospitalized, resume metformin at discharge Total Time Total Time Spent Total Time Spent (In Minutes): 40 Discharge Plan Discharge Items Patient Disposition: Home - Self-Care Reason For Visit: Right Side Pain Discharge Diagnosis: Kidney Stone Activity: Resume your previous activity Non-emergency contact: Primary Care Provider and Urologist Call non-emergency contact if: you have any medication questions, your symptoms worsen and your pain is not controlled Follow-up/Referrals: [facility] [place] Urology [Provider Group] (The office will call you with an appointment) Laron Bustillos MD [Primary Care Provider] - 12/22/22 11:20 am (Date & Time 12/22/2022 11:20 AM Provider Laron Bustillos MD Department Family Medicine [facility] ) Diet: Carb Consistent or DM2 and Heart Healthy Addtl Attending Provider Instructions: You came to the hospital for evaluation of right-sided pain. CT scan showed a right-sided kidney stone. You were evaluated by urology. Options were discussed for treatment and you will be discharged home for trial of kidney stone passage. You will be started on tamsulosin 0.4mg which will be taken daily. A prescription for oxycodone 5mg will also be given for you to take for severe pain. For mild to moderate pain, you may take Tylenol. Strain all urine. If you start to develop a fever, worsening pain, nausea/vomiting, please call your PCP or report back to the emergency room. Continue to take all other medications as previously prescribed. The [facility] urology office will be reaching out to you for follow-up appointment. Please follow-up with your PCP as previously scheduled. It was a pleasure taking care of you. If you need to reach a member of the [facility] Hospitalist team at [facility], please call [phone]. LUKASZ Tello Pending Studies at Discharge: Yes Studies:: blood culture results Stand-Alone Forms: [facility], Smoking Cessation Medications and DC Order Prescriptions: New tamsulosin 0.4 mg Capsule 0.4 mg PO DAILY Qty: 30 0RF oxycodone 5 mg Tablet 5 mg PO Q8H PRN (Reason: severe pain (scale score 7-10)) Qty: 10 0RF Continued multivitamin Tablet 1 tab PO DAILY amlodipine 5 mg tablet 5 mg PO DAILY isosorbide mononitrate 60 mg tablet extended release 24 hr 60 mg PO DAILY simvastatin 20 mg tablet 20 mg PO HS hydralazine 50 mg tablet 50 mg PO BID metoprolol succinate 25 mg tablet extended release 24 hr 12.5 mg PO HS metformin 500 mg tablet extended release 24 hr 500 mg PO BID aspirin 81 mg Tablet,Delayed Release (Dr/Ec) 81 mg PO DAILY omeprazole 20 mg Capsule,Delayed Release(Dr/Ec) 20 mg PO DAILY coQ10 (ubiquinol) 200 mg Capsule 200 mg PO DAILY PreserVision AREDS-2 250-90-40-1 mg Capsule 1 tab PO BID Discharge Orders: Discharge Order (Routine); Ordered 12/15/22 Ordered By: Natali Fierro/Other Patient Handouts: Understanding Kidney Stones, Kidney Stones Expectant Tx Admission Data Admit Date/Time: 12/15/22 03:08 Attending Provider: Igor Barcenas Admit Provider: Orlando Rios Primary Care Provider: Laron Bustillos Other Providers: Mac Burciaga ; Orlando Rios ; Srikanth Ivy ; Omar Flores ; Mynor Bravo ; Natali Hill ; Eben Morrow ; Kimberly Roa Melissa A. ; Dewayne Najera ; Palmira Chung ; Sofi Valles ; Kg Edwards ; Kyree Gregorio Other Interventions: Discharge Summary Assessment (RN) Last Done: 12/15/22 12:34 Supervising Physician Co-Signing Physician Notes delayed entry date of service noted above Attending Addendum: care coordinated with LUKASZ petit please refer to her notes for full details, I agree with her notes patient seen and examined, records reviewed by myself as well on exam, patient seen sitting up in bedside chair, comfortable, in good spirits States his pain has resolved Voiding with no problems, no hematuria no fevers or chills no other symptoms VS noted and reviewed oriented , not in distress, speaks in sentences with no effort nor accessory muscle use normal rate, regular rhythm, no murmurs clear breath sounds bilaterally non distended, soft, nontender, no CVA tenderness no bipedal edema, erythema, warmth no neuro deficits All labs ordered and reviewed ASSESSMENT AND PLAN diagnoses and plan of care as per LUKASZ petit's notes Igor Barcenas MD
[2022-12-15] MEDS ORDERED: SIMVASTATIN 20 MG TAB PO SCH (21:00)
[2022-12-15] MEDS ORDERED: METOPROLOL SUCC 25MG EXT REL TAB PO SCH (21:00)
[2022-12-16] MEDS ORDERED: TAMSULOSIN HCL 0.4 MG CAP PO SCH (09:00)
[2022-12-16] MEDS ORDERED: amLODIPine BESYLATE 5 MG TAB PO SCH (09:00)
== END 2022-12-15 12:59 | disposition home or self-care (01) | DRG 694 ==
LOC: ED 22:53 → SUATTDRO 12-15 03:08 → INTOOBSV 12-15 03:08 → 3W 12-15 03:08